=== PATIENT | female | born 1985 | race African-American/Black ===

== ENCOUNTER 2018-04-19 07:13 | Day surgery (SDC) | payer OTHER ==
[2018-04-18 14:59] VITALS: BMI 25.7
[2018-04-19 08:07] LABS: INR-International Normal Ratio 0.8; PTT 30.6 SEC (22.9-36.1); Prothrombin Time 11.6 SEC (12.0-14.7)
[2018-04-19 08:16] LABS: Mean Corpuscular HGB CONC 33.7 g/dL (32.0-36.0); Mean Corpuscular Hemoglobin 28.1 pg (27.0-31.0); Mean Corpuscular Volume 83.5 fL (78.0-98.0); Mean Platelet Volume 8.8 fL (7.4-10.4); Platelet Count 231 thou/uL (130-400); RBC Distribution Width 12.3 % (11.5-14.5); Red Blood Cell (RBC) Count 4.61 mill/uL (4.20-5.40); White Blood Cell (WBC) Count 5.7 thou/uL (4.8-10.8)
[2018-04-19 09:08] VITALS: BP 120/78; TEMP 97.9
[2018-04-19] MEDS ORDERED: Sodium Bicarbonate 2.5 MEQ/5 ML VIAL ONE (09:27)
[2018-04-19] MEDS ORDERED: Midazolam HCl 2 mg/2 ml Vial ONE (09:27)
[2018-04-19] MEDS ORDERED: Fentanyl 100 MCG/2 ML VIAL ONE (09:27)
[2018-04-19] MEDS ORDERED: Lidocaine 1% PF 5 ML VIAL ONE (09:34)
[2018-04-19 10:29] LABS: #Basophils 0.1 thou/uL (0.0-0.2); #Eosinphils 0.2 thou/uL (0.0-0.7); #Lymphocytes 2.1 thou/uL (1.20-3.40); #Monocytes 0.5 thou/uL (0.11-0.59); #Neutrophils 1.7 thou/uL (1.40-6.50); %Neutrophils 37.6 % (42.0-75.0); Eosinophils 1 % (0-10); Lymphocytes 51 % (21-51); MDiff Complete? YES; Monocytes 3 % (0-10); Neutrophil 34 % (42-75); RBC Morphology Normal; Reactive Lymphocytes 8 % (0-10)
[2018-04-19] MEDS ORDERED: Acetaminophen 500 MG TAB ONE (11:07)
--- NOTE | 2018-04-19 13:22 | ULT ---
HEPATIC DOPPLER ULTRASOUND: 04/19/2018 HISTORY: Abnormal liver function tests. COMPARISON: None. TECHNIQUE: Multiplanar vargas-scale sonographic imaging of the abdomen obtained. Hepatic and splenic vasculature is assessed with color-flow/spectral analysis. FINDINGS: The imaged pancreas is unremarkable. The pancreatic head and tail are obscured by bowel gas. The splenic artery and vein appear patent and demonstrate normal arterial and venous waveforms respec tively. The inferior vena cava and aorta are grossly unremarkable and also demonstrate appropriate w aveforms. No focal liver lesion is identified. There is mild heterogeneity and increased echogenicity of the h epatic parenchyma. The main portal vein is patent and demonstrates hepatopetal flow. The main hepat ic artery is patent with a normal arterial waveform. The left portal vein and the right portal vein are patent. The middle right and left hepatic veins a re patent as well. Appropriate waveforms are noted within the hepatic veins and portal veins. The common bile duct measures 2 mm, within normal limits. Small volume sludge versus artifact noted within the gallbladder lumen. No gallbladder wall thickeni ng. No gallstones are evident. The right kidney measures 10.5 cm in craniocaudal dimension and demo nstrates no stone, hydronephrosis, or mass. The spleen measures 10.2 x 3.7 cm. IMPRESSION: The hepatic and splenic vasculature is patent and demonstrates appropriate waveforms and flow directi on. Probable small volume gallbladder sludge. No gallstones or biliary dilation. POS: [facility]
--- NOTE | 2018-04-22 07:55 | ULT ---
ULTRASOUND GUIDED HEPATIC BIOPSY RANDOM: DATE: 04/19/2018. HISTORY: A 33-year-old female with persistently elevated liver function tests. R94.5. TECHNIQUE: Signed informed consent obtained. Right lobe of the liver selected for biopsy. Intercostal approach. The skin overlying the right lateral lower rib cage was prepared and draped in the usual sterile [facility] ion. A 25-gauge needle was used to apply buffered Lidocaine superficially, then deeply to the liver capsule. A 17-gauge introducer needle was advanced under ultrasound guidance into the periphery of t he right lobe of the liver parenchyma. Stylette removed. An 18-gauge biopsy needle was advanced in coaxial fashion through introducer needle. Biopsy gun was fired, yielding a 2.5 cm core tissue sampl e, which was placed in formalin. Introducer needle was removed. The patient tolerated the procedure well. No complications. CONSCIOUS SEDATION: Conscious discussed with the patient prior to the procedure. 1 mg Versed IV x 2, for a total of 2 mg. A total of 100 mcg of Fentanyl given IV for pain control. IMPRESSION: Successful 18 Gauge random ultrasound-guided biopsy of right lobe of liver x 1. POS: [facility]
== END 2018-04-19 11:45 | disposition home or self-care (01) ==
LOC: ULT 07:13
PROVIDERS: ATTEND Radiology Neuroradiology
PROC: 0FB13ZX Excision of Right Lobe Liver, Percutaneous Approach, Diagnostic (ICD-10-PCS; principal; 2018-04-19)
DX: K73.1 Chronic lobular hepatitis, not elsewhere classified (principal); K74.0 Hepatic fibrosis
CPT/HCPCS: 36415; 47000; 76705; 76942; 85025; 85610; 85730; 88307; 88313; J2001; J2250; J3010

== ENCOUNTER 2018-04-21 08:09 | Observation (INO) | payer OTHER ==
--- NOTE | 2018-04-21 08:50 | RAD ---
RADIOGRAPH CHEST 1 VIEW RADIOGRAPH ABDOMEN 2 VIEWS: HISTORY: A 33-year-old female with abdominal and chest pain. FINDINGS: The visualized lung gonzalez are clear. The cardiomediastinal silhouette and hilar shadows are normal. The lateral costophrenic angles are sharp. The osseous structures appear normal. There is no evid ence of pneumothorax or pneumoperitoneum. The bowel gas pattern is normal, with no evidence of small bowel dilation or differential air/fluid l evels. There is no evidence of organomegaly. IMPRESSION: Negative. lorie [] POS: [facility]
[2018-04-21] MEDS ORDERED: Morphine 4 MG/ML VIAL ONE ×2 (08:56→11:57)
[2018-04-21] MEDS ORDERED: Ondansetron PF 4 MG/2 ML Vial ONE (08:56)
[2018-04-21 09:08] LABS: BHCG - Serum Negative (NEGATIVE); Pregs Control Background? CLEAR/WHITE (CLR/WHITE); Pregs Control Bar Appear? YES (CONTROL BAR)
[2018-04-21 09:19] LABS: #Basophils 0.1 thou/uL (0.0-0.2); #Eosinphils 0.1 thou/uL (0.0-0.7); #Lymphocytes 1.7 thou/uL (1.20-3.40); #Monocytes 0.8 thou/uL (0.11-0.59); #Neutrophils 5.7 thou/uL (1.40-6.50); %Basophils 0.7 % (0.0-1.0); %Eosinophils 1.4 % (0.0-10.0); %Lymphocytes 20.3 % (21.0-51.0); %Monocytes 9.1 % (0.0-10.0); %Neutrophils 68.5 % (42.0-75.0); Hemoglobin 13.1 g/dL (12.0-16.0); Mean Corpuscular HGB CONC 33.7 g/dL (32.0-36.0); Mean Corpuscular Hemoglobin 27.9 pg (27.0-31.0); Mean Platelet Volume 8.9 fL (7.4-10.4); Platelet Count 231 thou/uL (130-400); RBC Distribution Width 12.3 % (11.5-14.5); Red Blood Cell (RBC) Count 4.69 mill/uL (4.20-5.40); White Blood Cell (WBC) Count 8.4 thou/uL (4.8-10.8)
[2018-04-21 09:26] LABS: ALT (SGPT) 118 U/L (8-55); AST (SGOT) 79 U/L (5-34); Albumin 3.5 g/dL (3.5-5.0); Alkaline Phosphatase 444 U/L (40-150); Anion Gap 14 mmol/L (10-20); BUN (Urea Nitrogen) 10 mg/dL (7.0-18.7); Bilirubin, Total 2.1 mg/dL (0.2-1.2); Calc. Creatinine Clearance 0 mL/min (70-130); Calcium 9.1 mg/dL (7.8-10.44); Carbon Dioxide 24 mmol/L (22-29); Chloride 102 mmol/L (98-107); Estimated GFR-MDRD Greater than 90; Glucose 100 mg/dL (70-105); Lipase 5 U/L (8-78); Protein, Total 7.5 g/dL (6.0-8.3); Sodium 136 mmol/L (136-145)
[2018-04-21 09:43] LABS: Bilirubin Small (Negative); Blood, Urine Negative (Negative); Clarity CLEAR (Clear); Glucose, Urine (Dipstick) Negative (Negative); Leukocyte Negative (Negative); Nitrite Negative (Negative); Protein, Urine (Dipstick) Negative (Neg-Trace); Specific Gravity, Urine 1.024 (1.002-1.036)
--- NOTE | 2018-04-21 10:39 | CT ---
CT ABDOMEN AND PELVIS WITH IV CONTRAST: HISTORY: Right upper quadrant pain. FINDINGS: There are minimal infiltrates in the left lung base. The liver, spleen, pancreas, adrenal glands, an d kidneys are normal. No calcified gallstones are seen. No free air, free fluid, or lymphadenopathy is identified in the abdomen or pelvis. The uterus and ovaries are present. A normal-appearing lavell endix is seen. The small bowel loops are not abnormally dilated. There is fecal material in the col on. No acute osseous abnormalities are seen. IMPRESSION: No acute process. POS: [facility]
--- NOTE | 2018-04-21 11:32 | ULT ---
ULTRASOUND ABDOMEN LIMITED: (RIGHT UPPER QUADRANT) HISTORY: A 33-year-old female with right upper quadrant abdominal pain radiating to the back and right shoulde r. FINDINGS: The gallbladder has normal wall thickness and has no evidence of gallstones. There is a small amount of sludge in the gallbladder. No pericholecystic fluid. The hepatic echogenicity is normal. The r ight kidney has normal echogenicity and has no hydronephrosis. The pancreas is visualized, although ultrasound is relatively insensitive for pancreatic pathology compared to CT and MRI. There is no bi liary dilation. The common duct caliber is 2 mm. IMPRESSION: 1. Small amount of gallbladder sludge. 2. Otherwise, negative. lorie Miranda POS: [facility]
[2018-04-21] MEDS ORDERED: ISOVUE-370 76%-LOCM 1 ML ONE (13:20)
[2018-04-21] MEDS ORDERED: Morphine 4 MG/ML VIAL SLOW IVP PRN (17:42)
[2018-04-21] MEDS ORDERED: Acetaminophen 325 MG TAB PO PRN ×2 (17:43)
[2018-04-21] MEDS ORDERED: traMADol HCl 50 MG TAB PO PRN ×2 (17:44)
[2018-04-21] MEDS: Morphine 4 MG/ML VIAL SLOW IVP PRN ×2 (18:03→22:10)
[2018-04-21 19:27] VITALS: BMI 25.7
[2018-04-21] MEDS ORDERED: Sodium Chloride 0.9% 10 ML ONE (22:08)
--- NOTE | 2018-04-21 23:03 | HP ---
CHIEF COMPLAINT: Abdominal pain. HISTORY: Ms. Arevalo is a 33-year-old woman, who recently underwent a liver biopsy in Radiology on Sunday. She states that she was somewhat sore after the procedure, but then the next day it was hurting worse and this morning she woke up around 4 o'clock with severe right upper quadrant pain whenever she tried to turn or move or cough. She states that she is hungry and has been eating normally and having normal bowel movements. She has had no difference in the pain with eating or drinking and has not had any nausea, vomiting, fevers, or chills. The only thing that makes the pain worse is movement. She came into the emergency room because the pain was not getting any better. Her lab work was unremarkable except for the known elevation in her LFTs, which is the reason that she had liver biopsy done. This is by report consistent with the level of elevation with pain in the past. She underwent an ultrasound of the gallbladder which showed some sludge and a CT scan of the abdomen and pelvis, which was unremarkable. The patient denies any history of fatty food intolerance or pain or nausea after eating. PAST MEDICAL HISTORY: None. PAST SURGICAL HISTORY: None except for the liver biopsy on Sunday. SOCIAL HISTORY: The patient does not smoke, drink, or use illicit drugs. FAMILY HISTORY: Diabetes, high blood pressure, and breast cancer in her mom and her aunt both when they were in their early 40s. No history of ovarian cancer as far she knows, neither her mother nor her aunt were tested for BRCA. OUTPATIENT MEDICATIONS: None. ALLERGIES: NO KNOWN DRUG ALLERGIES. REVIEW OF SYSTEMS: Ten-system review of systems is negative except per HPI. PHYSICAL EXAMINATION: VITAL SIGNS: Normal. GENERAL: Reveals a healthy-appearing young woman, in no acute distress. HEENT: Unremarkable. NECK: Supple without lymphadenopathy or thyroid nodules. HEART: Regular in its rate and rhythm without murmurs, rubs, or gallops. LUNGS: Clear to auscultation bilaterally. ABDOMEN: Soft and nondistended. She is tender to palpation in the right upper quadrant with voluntary guarding. She does not exhibit rigidity or rebound, however. No palpable masses or hernias. No bruising at the biopsy site. EXTREMITIES: Warm and well perfused without edema. NEURO: No focal deficits. PSYCHIATRIC: Alert, oriented, and appropriate. LABORATORY DATA: White count is normal at 8.4, hematocrit is 38, which is stable compared to 2 days ago. Coags 2 days ago were normal. Bilirubin is 2.1, AST 79, ALT 118, and alkaline phosphatase 444, reportedly this is about where she has been. DIAGNOSTIC STUDIES: CT and ultrasound images are reviewed and I agree with written report. ASSESSMENT: Right upper quadrant pain following liver biopsy. No large hematoma or significant amount of free fluid in the abdomen is noted, but she could still have some minor bleeding in this area causing irritation. She does not have any history of biliary colic symptoms and she only has a small amount of sludge in her gallbladder. Gallbladder does not appear thickened or edematous and her pain is only aggravated by movement and not by eating, which is atypical for cholecystitis. I recommended a HIDA scan since the patient has not eaten today. It will be very late before that could be obtained tonight. I am going to admit her and put her on a diet tonight and make her n.p.o. after midnight and get a HIDA scan in the morning. If this is abnormal, then we will discuss laparoscopic cholecystectomy. Job ID: [id number]
[2018-04-22] MEDS: Morphine 4 MG/ML VIAL SLOW IVP PRN ×2 (03:33→09:22)
[2018-04-22] MEDS ORDERED: Sodium Chloride 0.9% 10 ML ONE ×2 (09:15→13:22)
--- NOTE | 2018-04-22 10:58 | NM ---
HIDA SCAN: Indication: Concern for acute cholecystitis. Radiopharmaceutical: 5.2 mCi Technetium 99M Mebrofenin IV FINDINGS: The gallbladder is demonstrated by the 12 minute time rani. Bowel activity is seen at the 34 minute t kelley rani. The ejection fraction is 33%. 1.3 mg of CCK were given for this portion of the exam. IMPRESSION: 1. Visualization of the gallbladder virtually excludes cystic duct obstruction. 2. Gallbladder ejection fraction of 33% is lower limits of normal and is equivocal for changes of gal lbladder dyskinesia or chronic cholecystitis. POS: [facility]
[2018-04-22 11:40] VITALS: BP 116/56; TEMP 98.4
== END 2018-04-22 15:00 | disposition home or self-care (01) ==
LOC: ERS 08:09 → UNDOADMIN 17:14 → 3SE 17:14 → UNDODISIN 04-22 15:00
PROVIDERS: ADMIT Surgery; ATTEND Surgery
DX: G89.18 Other acute postprocedural pain (principal); K82.8 Other specified diseases of gallbladder; Z98.890 Other specified postprocedural states
CPT/HCPCS: 36415; 74022; 74177; 76705; 78227; 80053; 81003; 83690; 84703; 85025; 96361; 96374; 96375; 96376; A9537; G0378; J2270; J2405; Q9966

== ENCOUNTER 2018-05-15 08:02 | Outpatient (CLI) | payer OTHER ==
[2018-05-15] MEDS ORDERED: Iopamidol 370 76% 100 ML VIAL ONE (10:11)
--- NOTE | 2018-05-15 10:14 | CT ---
ABDOMEN CT WITH CONTRAST: History: Right upper quadrant abdominal pain. Liver biopsy two weeks ago. FINDINGS: Lung bases are clear. Portal vein is patent. Gallbladder is unremarkable. No gastrohepatic, retrocrural, periportal lymphadenopathy. No mesenteric mass, lymphadenopathy, free air or free fluid. Liver, spleen, pancreas, and adrenal glands have appropriate enhancement. Symmetric enhancement of the kidneys. Mild distention of the right intrarenal collecting system. Left intrarenal collecting system is unremarkable. Visualized ureters are unremarkable, bilaterally. Visualized alimentary canal is unremarkable. No lytic or blastic lesion in the osseous structures. IMPRESSION: Mild dilatation of the right intrarenal collecting system. POS: [facility]
== END 2018-05-15 08:03 | disposition home or self-care (01) ==
LOC: CT 08:02
PROVIDERS: ATTEND Internal Medicine Gastroenterology
DX: R10.11 Right upper quadrant pain (principal); N28.89 Other specified disorders of kidney and ureter
CPT/HCPCS: 74160; Q9967